=== PATIENT | male | born 1940 | race Caucasian/White ===

== ENCOUNTER 2016-06-12 09:56 | Day surgery (SDC) | payer MEDICARE, OTHER ==
[~2016-06-12] VITALS: Ht 177.8 cm; Wt 90.3 kg
[2016-06-12] VITALS (7 sets, daily range): BP systolic 114–145; BP diastolic 58–73; PULSE 50–57; RESP 8–19; O2SAT 94–100
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
[~2016-06-12 09:56] MED LIST: ASPI-973 PO; BENZ0.5T3 PO; CARV6.252 PO; CeFAZolin Inj 2 GM in IV Premix 1 EACH IV SCH; DEP500A PO; DOXA2TAB52 PO; HYDR-656 PO; Lactated Ringer's 1,000 ML IV ONE; NITR0.4T SL; OMEP20CA11 PO; TERA1CAP3 PO; VARD20TA30 PO
[2016-06-12] MEDS ORDERED: Dexamethasone 4 mg/mL Inj ONE (09:57)
[2016-06-12] MEDS ORDERED: Propofol 10,000 mCg/mL 20 mL Inj ONE (09:57)
[2016-06-12] MEDS ORDERED: Ondansetron 2 mg/mL 2 mL Inj ONE (09:57)
[2016-06-12] MEDS: Acetaminophen IV 1,000 mg IV SCH ×2 (10:58→11:00)
[2016-06-12] MEDS ORDERED: SPIR50TA2 PO (11:06)
[2016-06-12] MEDS ORDERED: LIP40 PO (11:06)
[2016-06-12] MEDS ORDERED: TERA1CAP3 PO (11:06)
[2016-06-12] MEDS ORDERED: HYDROcodone-APAP 5-325 mg Tablet PO PRN (12:05)
[2016-06-12] MEDS ORDERED: Lactated Ringer's 500 ML IV PRN (12:14)
[2016-06-12] MEDS ORDERED: Lactated Ringer's 1,000 ML IV SCH (12:14)
[2016-06-12] MEDS ORDERED: Ondansetron 2 mg/mL 2 mL Inj IVPUSH PRN (12:15)
[2016-06-12] MEDS ORDERED: fentaNYL-PF 50 mCg/mL 2 mL Inj IVPUSH PRN (12:15)
[2016-06-12] MEDS ORDERED: Phenylephrine 10,000 mCg/mL Inj IVPUSH PRN (12:15)
[2016-06-12] MEDS ORDERED: MetoCLOpramide 5 mg/mL 2 mL Inj IVPUSH PRN (12:15)
[2016-06-12] MEDS ORDERED: EPHEDrine Sulfate 50 mg/mL Inj IVPUSH PRN (12:15)
[2016-06-12] MEDS ORDERED: Dexamethasone 4 mg/mL Inj IVPUSH PRN (12:15)
[2016-06-12] MEDS ORDERED: Belladonna Alk-Opium 60 mg Rectal Suppository RECTAL ONE (12:17)
--- NOTE | 2016-06-12 15:56 | PCM.ANEP1 ---
Post Anesthesia Phase 1 PACU Phase 1 Assessment Vital Signs Vital Signs Date Time Temp Pulse Resp B/P Pulse Ox O2 Delivery O2 Flow Rate FiO2 06/12/16 14:04 36.5 56 19 141/59 98 Room Air 06/12/16 12:50 36.1 50 16 145/59 97 Room Air 06/12/16 12:33 52 19 143/63 100 Nasal Cannula 06/12/16 12:23 53 17 142/62 100 Simple Mask 10 06/12/16 12:15 54 8 114/58 100 Simple Mask 10 06/12/16 12:11 36.9 52 19 115/58 94 Room Air 10 06/12/16 10:40 57 14 132/73 95 Room Air 06/12/16 10:40 CPAP/BIPAP Anesthetic Administered: GA Level of Alertness: Awake, talking KENT's with Equal Strength: Yes Pain: No Nausea or Vomiting: No Airway Device: Endotrachial Tube Oxygen Delivery: Nasal Cannula Lungs: Clear to Auscultation, Normal Air Movement Dermatome Level: Full Sensation Complications: No Follow up Care: No Patient Instructions Provided: Yes Francisco Hernandez MD June 12, 2016 15:56
--- NOTE | 2016-06-13 01:19 | OP ---
[address] [address] OPERATIVE REPORT PATIENT: KARI CEVALLOS V : 1940 MR#: [id number] ADMIT: 06/12/2016 JOB ID: [id number] DATE OF SURGERY: 06/12/2016 SURGEON: Akosua Aguilera MD PREOPERATIVE DIAGNOSIS(ES): 1. Bladder neck contracture. 2. Worsening incontinence. POSTOPERATIVE DIAGNOSIS(ES): 1. Bladder neck contracture. 2. Worsening incontinence. OPERATION PERFORMED: 1. Cystoscopy. 2. Incision and dilation of bladder neck contracture. ANESTHESIOLOGIST: Francisco Hernandez MD ANESTHESIA: General. FINDINGS: Urethra normal. External sphincter intact. Prostate, status post TR, nonobstructing. There is a fixed contracture . Grade 2 trabeculation was noted within the bladder. No stone, tumor or diverticulum were seen. Orifices were normal bilaterally with a clear efflux of urine. Radial incisions were made, 12, 2, 4, 8 and 10 o'clock as well as 3 and 9 at the bladder neck with the cold knife. PROCEDURE SUMMARY: The patient was positioned supine and was administered general anesthesia. The 22-[place] urethrotome was then passed into the lower urinary tract with the findings as described above. The urethrotome was fitted with a scalpel and incisions were made at locations described above. Incisions were made to the level of vascularized tissue. The bladder was then left , and a 22-[place] silicone catheter was inserted. The balloon was filled with 10 cc . The patient was then repositioned supine, awakened and transferred to recovery room in stable condition.
== END 2016-06-12 23:59 | disposition home or self-care (01) ==
LOC: SAS 09:56
PROVIDERS: ATTEND Specialist
DX: N32.0 Bladder-neck obstruction (principal); N39.46 Mixed incontinence; I10 Essential (primary) hypertension; E78.5 Hyperlipidemia, unspecified; K21.9 Gastro-esophageal reflux disease without esophagitis; I25.10 Atherosclerotic heart disease of native coronary artery without angina pectoris; I77.1 Stricture of artery; N40.1 Benign prostatic hyperplasia with lower urinary tract symptoms; R35.1 Nocturia; G47.33 Obstructive sleep apnea (adult) (pediatric); G25.81 Restless legs syndrome; G47.00 Insomnia, unspecified; F31.9 Bipolar disorder, unspecified; I73.9 Peripheral vascular disease, unspecified; Z95.5 Presence of coronary angioplasty implant and graft; Z86.73 Personal history of transient ischemic attack (TIA), and cerebral infarction without residual deficits; Z87.891 Personal history of nicotine dependence
CPT/HCPCS: 52276; J0131; J0690; J1100; J2405; J7120

== ENCOUNTER → 2016-10-09 | Day surgery (SDC) | payer MEDICARE, OTHER ==
[~2016-10-09] VITALS: Ht 177.8 cm; Wt 88.5 kg
[~2016-10-09] MED LIST changes: +0.9% Sodium Chloride 1,000 ML IV SCH; -BENZ0.5T3 PO; -CeFAZolin Inj 2 GM in IV Premix 1 EACH IV SCH; -DEP500A PO; -DOXA2TAB52 PO; -HYDR-656 PO; +LIP40 PO; -Lactated Ringer's 1,000 ML IV ONE; -OMEP20CA11 PO; +SPIR50TA2 PO; +Sodium Chloride LOK Flush 10 mL Syringe IV PRN; -VARD20TA30 PO; +fentaNYL-PF 50 mCg/mL 2 mL Inj IVPUSH PRN
[2016-10-09 09:53] VITALS: BP 109/57; PULSE 50; RESP 16; O2SAT 94
[2016-10-09 11:07] VITALS: BP 105/59; PULSE 46; RESP 14; O2SAT 94
[2016-10-09 11:30] VITALS: BP 94/66; PULSE 49; RESP 16; O2SAT 97
[2016-10-09 11:42] VITALS: BP 121/74; PULSE 50; RESP 14; O2SAT 95
--- NOTE | 2016-10-09 20:13 | ENDO ---
[address] [address] ENDOSCOPY PROCEDURE PATIENT: KARI CEVALLOS V : 1940 MR#: [id number] ADMIT: 10/09/2016 JOB ID: [id number] DATE OF SERVICE: 10/09/2016 PROCEDURE: Colonoscopy. INDICATIONS: Abdominal pain in left lower quadrant. The patient's ASA classification is 2, Mallampati score is 2. MEDICATIONS: 1. Versed 4 mg. 2. Fentanyl 75 mcg. INSTRUMENT USED: PCF H 180AL PREPARATION QUALITY: Fair. PROCEDURE DETAILS: After informed consent was obtained, the patient was brought to the GI suite, where he was placed on oxygen via nasal cannula and monitored with continuous pulse oximeter, telemetry, and blood pressure monitoring. A time-out was performed. Then, he was placed in a left lateral decubitus position. Medications were administered for sedation. Digital rectal exam was performed and was unremarkable. The colonoscope was then inserted into the rectum and advanced under direct visualization to the cecum, which was identified by the presence of the ileocecal valve and appendiceal orifice. Once the cecum was reached, the colonoscope was withdrawn back into the rectum and mucosa and lumen were examined. In the rectum, retroflexion was performed. Following retroflexion, remaining air in the rectum was suctioned, and procedure was completed. FINDINGS: 1. In the transverse colon, there were two polyps that were both measured at approximately 4 mm each. Both polyps were removed with a cold snare. The remainder of the colon exam was otherwise unremarkable. 2. No findings to explain the patient's left for lower quadrant pain. IMPRESSION: Two transverse colon polyps. RECOMMENDATIONS: 1. Trial of MiraLAX daily. 2. Follow up in GI clinic in 2-4 weeks. COMPLICATIONS: None. ESTIMATED BLOOD LOSS: Less than 5 mL.
--- NOTE | 2016-10-11 18:17 | PATH ---
SURGICAL PATHOLOGY Attending Physician:Cory Cortez CASE STATUS: Signed Out PATIENT NAME: KARI CEVALLOS V. PID: [id number] : 1940 DATE COLLECTED:10/09/2016 19:23 SPECIMEN: Colon, Polyp CLINICAL HISTORY: 1). TRANSVERSE COLON POLYP FINAL DIAGNOSIS: Transverse Colon Polyp, Biopsy: Tubular adenoma. ICD10: D12.3 GROSS DESCRIPTION: The specimen is received in one formalin filled container labeled with the patient's name, sublabeled "transverse colon polyp" and consists of a 0.2 x 0.2 x 0.2 CM portion of tissue and debris. The specimen is entirely submitted in one cassette. 10/09/2016DC ICD-9 CODES: CPT CODES: 1: 58441 Electronically Signed Out June Lauren MD [facility] Pathology [facility], [place] [address] Technical component performed at [facility], [address] [place] [address] Ave[address], [place], [address]
== END | disposition home or self-care (01) ==
LOC: END 07:53
PROVIDERS: ATTEND Internal Medicine Gastroenterology
DX: D12.3 Benign neoplasm of transverse colon (principal); I25.10 Atherosclerotic heart disease of native coronary artery without angina pectoris; Z95.1 Presence of aortocoronary bypass graft; E78.5 Hyperlipidemia, unspecified; I10 Essential (primary) hypertension; G25.81 Restless legs syndrome; G47.33 Obstructive sleep apnea (adult) (pediatric); K21.9 Gastro-esophageal reflux disease without esophagitis; G47.00 Insomnia, unspecified; Z86.73 Personal history of transient ischemic attack (TIA), and cerebral infarction without residual deficits; I73.9 Peripheral vascular disease, unspecified; Z79.82 Long term (current) use of aspirin
CPT/HCPCS: 45385; 99153; G0500; J2250; J3010; J7030